=== PATIENT | male | born 1965 | race Two or more races ===

== ENCOUNTER 2022-01-30 18:53 | Emergency (ER) | payer OTHER ==
[~2022-01-30] VITALS: Ht 181.9 cm; Wt 96.2 kg
[2022-01-30] MEDS ORDERED: METOPROLOL TARTRATE 50 MG TAB PO ONE (20:00)
[2022-01-30] MEDS ORDERED: METOPROLOL TARTRATE 50 MG TAB ONE (20:03)
[2022-01-30] MEDS ORDERED: SODIUM CHLORIDE 0.9% 1000ML 1,000 ML IV SCH (20:15)
[2022-01-30] MEDS ORDERED: METOPROLOL TARTRATE INJ 1 MG/ML VIAL IV ONE (20:15)
[2022-01-30] MEDS ORDERED: METOPROLOL TARTRATE INJ 1 MG/ML VIAL ONE (20:56)
[2022-01-30] MEDS ORDERED: METOPROLOL TART25 MG PO (22:04)
[2022-01-30] MEDS ORDERED: ELIQUIS5 MG PO (22:05)
[2022-01-30 23:14] VITALS: BP 101/76
== END 2022-01-30 23:14 | disposition home or self-care (01) ==
LOC: FSED 19:05
DX: I48.92 Unspecified atrial flutter (principal); R00.2 Palpitations; R94.31 Abnormal electrocardiogram [ECG] [EKG]
CPT/HCPCS: 71046; 80053; 82553; 84484; 85025; 93005; 99284; J7030